=== PATIENT | male | born 1935 | race Native Hawaiian/Other Pacific Islander ===

== ENCOUNTER 2018-09-23 16:03 | Outpatient (CLI) | payer OTHER | END 2018-09-23 19:59 | disposition home or self-care (01) | LOC: LAB 16:03 | DX: N39.0 Urinary tract infection, site not specified (principal) | CPT/HCPCS: 81000 ==

== ENCOUNTER 2018-10-13 11:12 | Outpatient (CLI) | payer OTHER | END 2018-10-13 21:27 | disposition home or self-care (01) | LOC: RAD 11:12 | DX: R13.12 Dysphagia, oropharyngeal phase (principal) ==